=== PATIENT | female | born 1980 | race Caucasian/White ===

== ENCOUNTER 2018-07-22 05:20 | Inpatient (IN) | payer OTHER ==
[~2018-07-22] VITALS: Ht 167.6 cm; Wt 110.0 kg
[2018-07-22] MEDS ORDERED: OXYTOCIN 30U/ 0.9% NaCL 500ML 500 ML IV ONE (05:27)
[2018-07-22] MEDS ORDERED: OXYTOCIN 30U/ 0.9% NaCL 500ML 500 ML IV PRN (05:27)
[2018-07-22] MEDS ORDERED: D5%-LACTATED RINGERS 1,000 ML IV SCH (05:27)
[2018-07-22] MEDS ORDERED: TERBUTALINE 1 MG/ML, 1ML IVPush PRN ×2 (05:30)
[2018-07-22] MEDS ORDERED: ALUMINUM/MAG/SIMETHICONE 30 ML UDC PO PRN (05:30)
[2018-07-22] MEDS ORDERED: ONDANSETRON 2MG/ML, 2ML IVPush PRN (05:30)
[2018-07-22] MEDS ORDERED: FENTANYL PF 100 MCG/2ML IV PRN (05:30)
[2018-07-22] MEDS ORDERED: TERBUTALINE 1 MG/ML, 1ML SQ PRN (05:30)
[2018-07-22] MEDS ORDERED: FENTANYL PF 100 MCG/2ML IVPush PRN (05:30)
[2018-07-22] MEDS ORDERED: CALCIUM CARBONATE 500 MG TAB.CHEW PO PRN ×2 (05:30→19:00)
[2018-07-22] MEDS ORDERED: METOCLOPRAMIDE 5 MG/ML, 2ML IVPush PRN (05:30)
[2018-07-22] MEDS ORDERED: NEWBORN KIT ONE (05:32)
[2018-07-22] MEDS ORDERED: OXYTOCIN 30U/ 0.9% NaCL 500ML 0 ML ONE (05:32)
[2018-07-22] MEDS: LACTATED RINGERS 1,000 ML IV SCH ×4 (05:41→17:04)
[2018-07-22 05:56] VITALS: BP 129/67
[2018-07-22] MEDS ORDERED: PLEASE ENTER ALLERGIES MC SCH (06:00)
[2018-07-22] MEDS ORDERED: MISOPROSTOL 25 MCG TABLET ONE (06:21)
[2018-07-22] MEDS ORDERED: MISOPROSTOL 25 MCG TABLET VG PRN (06:30)
[2018-07-22 06:49] LABS: BASOPHILS # (AUTO) 0.05 x10^3/uL (0-0.1); BASOPHILS % (AUTO) 0 % (0-1); EOSINOPHILS % (AUTO) 1 % (1-7); LYMPHOCYTES # (AUTO) 2.07 x10^3/uL (1-3.4); LYMPHOCYTES % (AUTO) 16 % (22-44); MD NO; MEAN CORPUSCULAR HEMOGLOBIN 27.9 pg (27.0-34.8); MEAN CORPUSCULAR HGB CONC 33.6 g/dL (32.4-35.8); MEAN CORPUSCULAR VOLUME 82.9 fL (80-100); MEAN PLATELET VOLUME 7.3 fL (7.4-10.4); MONOCYTES # (AUTO) 0.68 x10^3/uL (0.2-0.8); MONOCYTES % (AUTO) 5 % (2-9); NEUTROPHILS # (AUTO) 9.77 x10^3/uL (1.8-6.8); NEUTROPHILS % (AUTO) 77 % (42-75); PLATELET COUNT 285 x10^3/uL (130-400); RED BLOOD COUNT 4.42 x10^6/uL (3.82-5.3); RED CELL DISTRIBUTION WIDTH 15.2 % (9.6-15.2)
[2018-07-22] MEDS ORDERED: FENTANYL/BUPIV./NS/PF 250 ML EPIDCONT SCH (07:09)
[2018-07-22] MEDS ORDERED: OXYTOCIN 30U/ 0.9% NaCL 500ML 500 ML ONE (10:48)
[2018-07-22] MEDS ORDERED: BUPIVACAINE 0.25% ONE ×2 (14:21→16:55)
[2018-07-22] MEDS ORDERED: LIDOCAINE/PF 1.5%-EPI 1:200K, 30ML ONE (14:22)
[2018-07-22] MEDS ORDERED: FENTANYL PF 100 MCG/2ML ONE (16:54)
[2018-07-22] MEDS ORDERED: LIDOCAINE 1%, 20ML ONE (18:15)
[2018-07-22] MEDS ORDERED: MISOPROSTOL 200 MCG TABLET ONE (18:16)
[2018-07-22] MEDS: OXYTOCIN 30U/ 0.9% NaCL 500ML 500 ML IV SCH (18:35)
[2018-07-22] MEDS ORDERED: IBUPROFEN 600 MG TABLET ONE (18:42)
[2018-07-22] MEDS: IBUPROFEN 600 MG TABLET PO PRN (18:44)
[2018-07-22] MEDS ORDERED: GLYCERIN ADULT SUPP PR PRN (19:00)
[2018-07-22] MEDS ORDERED: METHYLERGONOVINE 0.2 MG/ML IM PRN (19:00)
[2018-07-22] MEDS ORDERED: DOCUSATE 100 MG CAPSULE PO PRN (19:00)
[2018-07-22] MEDS ORDERED: ONDANSETRON 2MG/ML, 2ML IV PRN (19:00)
[2018-07-22] MEDS ORDERED: CARBOPROST TROMETHAMINE 250 MCG/ML, 1ML IM PRN (19:00)
[2018-07-22] MEDS ORDERED: METOCLOPRAMIDE 5 MG/ML, 2ML IV PRN (19:00)
[2018-07-22] MEDS ORDERED: OXYcodone/APAP 5/325MG TABLET PO PRN ×2 (19:00)
[2018-07-22] MEDS ORDERED: MISOPROSTOL 200 MCG TABLET PR PRN (19:00)
[2018-07-22] MEDS ORDERED: BISACODYL 10 MG SUPP PR PRN (19:00)
[2018-07-22] MEDS ORDERED: ACETAMINOPHEN 325 MG TABLET PO PRN (19:00)
[2018-07-22] MEDS ORDERED: DIPH,PERTUSS(ACELL),TET VAC/PF NC IM-VACC PRN (19:00)
[2018-07-22] MEDS ORDERED: MEASLES,MUMPS&RUBELLA VACC/PF 0.5 ML SQ PRN (19:00)
[2018-07-22] MEDS ORDERED: MAGNESIUM HYDROXIDE 8%, 30ML UDC PO PRN (19:00)
[2018-07-22 21:00] VITALS: BP 113/73
[2018-07-23] MEDS: IBUPROFEN 600 MG TABLET PO PRN ×3 (00:47→14:33)
[2018-07-23 01:00] VITALS: BP 122/74
[2018-07-23 03:00] LABS: BASOPHILS # (AUTO) 0.01 x10^3/uL (0-0.1); BASOPHILS % (AUTO) 0 % (0-1); EOSINOPHILS # (AUTO) 0.01 x10^3/uL (0-0.4); EOSINOPHILS % (AUTO) 0 % (1-7); LYMPHOCYTES # (AUTO) 1.57 x10^3/uL (1-3.4); LYMPHOCYTES % (AUTO) 10 % (22-44); MD NO; MEAN CORPUSCULAR HEMOGLOBIN 27.9 pg (27.0-34.8); MEAN CORPUSCULAR HGB CONC 33.7 g/dL (32.4-35.8); MEAN CORPUSCULAR VOLUME 82.7 fL (80-100); MEAN PLATELET VOLUME 7.1 fL (7.4-10.4); MONOCYTES # (AUTO) 0.73 x10^3/uL (0.2-0.8); MONOCYTES % (AUTO) 5 % (2-9); NEUTROPHILS # (AUTO) 13.45 x10^3/uL (1.8-6.8); NEUTROPHILS % (AUTO) 85 % (42-75); PLATELET COUNT 251 x10^3/uL (130-400); RED BLOOD COUNT 3.98 x10^6/uL (3.82-5.3); RED CELL DISTRIBUTION WIDTH 15.2 % (9.6-15.2)
[2018-07-23] MEDS: OXYTOCIN 30U/ 0.9% NaCL 500ML 500 ML IV SCH (04:35)
[2018-07-23 04:45] VITALS: BP 115/72
[2018-07-23] MEDS ORDERED: LACTATED RINGERS 1,000 ML IV SCH (04:59)
[2018-07-23] MEDS ORDERED: FENTANYL/BUPIV./NS/PF 250 ML EPIDCONT SCH (04:59)
[2018-07-23] MEDS ORDERED: DIPHENHYDRAMINE 50 MG/ML, 1ML IVPush PRN (05:00)
[2018-07-23] MEDS ORDERED: NALOXONE 0.4 MG/ML, 1ML IVPush PRN (05:00)
[2018-07-23] MEDS ORDERED: EPHEDRINE 50 MG/ML, 1ML IVPush PRN (05:00)
[2018-07-23] MEDS ORDERED: ONDANSETRON 2MG/ML, 2ML IVPush PRN (05:00)
[2018-07-23] MEDS ORDERED: LACTATED RINGERS 1,000 ML IVBOLUS PRN (05:00)
[2018-07-23 08:00] VITALS: BP 108/70
[2018-07-23] MEDS ORDERED: PRENATAL VIT/IRON/FA 1 EACH TABLET PO SCH (09:00)
[2018-07-23 13:13] VITALS: BP 117/73
[2018-07-23] MEDS ORDERED: IBUP-1222 PO (18:23)
== END 2018-07-23 20:20 | disposition home or self-care (01) | DRG 807 ==
LOC: LDIP 05:20 → 2NW 20:45
PROVIDERS: ADMIT Obstetrics & Gynecology; ATTEND Obstetrics & Gynecology
PROC: 10E0XZZ Delivery of Products of Conception, External Approach (ICD-10-PCS; principal; 2018-07-22)
PROC: 3E033VJ Introduction of Other Hormone into Peripheral Vein, Percutaneous Approach (ICD-10-PCS; 2018-07-22)
PROC: 0UQKXZZ Repair Hymen, External Approach (ICD-10-PCS; 2018-07-22)
PROC: 3E0R3BZ Introduction of Anesthetic Agent into Spinal Canal, Percutaneous Approach (ICD-10-PCS; 2018-07-22)
PROC: 00HU33Z Insertion of Infusion Device into Spinal Canal, Percutaneous Approach (ICD-10-PCS; 2018-07-22)
DX: O66.0 Obstructed labor due to shoulder dystocia (principal); Z37.0 Single live birth; Z3A.39 39 weeks gestation of pregnancy; O70.0 First degree perineal laceration during delivery
CPT/HCPCS: 36415; 85025; 86850; 86900; G0378; J3490; J2590; J3010; J7120

== ENCOUNTER → 2018-09-23 | Outpatient (CLI) | payer OTHER ==
[~2018-09-23] MED LIST: IBUP-1222 PO; NO MEDS PER PT
[2018-09-23 15:08] LABS: BASOPHILS # (AUTO) 0.05 x10^3/uL (0-0.1); BASOPHILS % (AUTO) 1 % (0-1); EOSINOPHILS % (AUTO) 1 % (1-7); LYMPHOCYTES # (AUTO) 2.02 x10^3/uL (1-3.4); LYMPHOCYTES % (AUTO) 27 % (22-44); MD NO; MEAN CORPUSCULAR HEMOGLOBIN 26.9 pg (27.0-34.8); MEAN CORPUSCULAR HGB CONC 32.2 g/dL (32.4-35.8); MEAN CORPUSCULAR VOLUME 83.7 fL (80-100); MEAN PLATELET VOLUME 6.8 fL (7.4-10.4); MONOCYTES # (AUTO) 0.39 x10^3/uL (0.2-0.8); MONOCYTES % (AUTO) 5 % (2-9); NEUTROPHILS # (AUTO) 5.06 x10^3/uL (1.8-6.8); NEUTROPHILS % (AUTO) 66 % (42-75); PLATELET COUNT 370 x10^3/uL (130-400); RED BLOOD COUNT 5.42 x10^6/uL (3.82-5.3); RED CELL DISTRIBUTION WIDTH 15.5 % (9.6-15.2)
[2018-09-23 15:22] LABS: MICROSCOPIC AUTO
[2018-09-23 15:25] LABS: CULTURE INDICATED? YES
== END | disposition home or self-care (01) ==
LOC: LAB 14:33
PROVIDERS: ATTEND Obstetrics & Gynecology
DX: Z01.818 Encounter for other preprocedural examination (principal); Z30.2 Encounter for sterilization
CPT/HCPCS: 36415; 81001; 84702; 85025; 87086

== ENCOUNTER 2018-09-27 10:08 | Day surgery (SDC) | payer OTHER ==
[~2018-09-27] VITALS: Ht 167.6 cm; Wt 96.5 kg
[~2018-09-27 10:08] MED LIST changes: +EPINEPHRINE 1 MG/ML, 1ML ONE; -NO MEDS PER PT
[2018-09-27] MEDS ORDERED: LACTATED RINGERS 1,000 ML IV SCH (10:41)
[2018-09-27 10:42] VITALS: BP 104/65
[2018-09-27] MEDS ORDERED: NO MEDS PER PT (10:42)
[2018-09-27] MEDS ORDERED: MIDAZOLAM 1 MG/ML, 2ML ONE (11:10)
[2018-09-27] MEDS ORDERED: FENTANYL PF 250 MCG/5ML ONE (11:10)
[2018-09-27] MEDS ORDERED: ROCURONIUM 10MG/ML,5ML ONE (11:11)
[2018-09-27] MEDS ORDERED: LIDOCAINE-MPF 2% ,5ML ONE (11:12)
[2018-09-27] MEDS ORDERED: PROPOFOL 10 MG/ML, 20ML ONE (11:12)
[2018-09-27] MEDS ORDERED: SCOPOLAMINE PATCH, 1.5MG PATCH.TD72 TD ONE (11:27)
[2018-09-27] MEDS ORDERED: KETOROLAC 30 MG/1 ML ONE (12:40)
[2018-09-27] MEDS ORDERED: CEFOTETAN PMX 2GM/50ML 50 ML IVPB ONE (12:40)
[2018-09-27] MEDS ORDERED: DEXAMETHASONE 4 MG/ML, 1ML ONE (12:45)
[2018-09-27] MEDS ORDERED: FENTANYL PF 100 MCG/2ML IV PRN (13:00)
[2018-09-27] MEDS ORDERED: ACETAMINOPHEN 325 MG TABLET PO PRN (13:00)
[2018-09-27] MEDS ORDERED: PROMETHAZINE 25 MG/ML, 1ML IV PRN (13:00)
[2018-09-27] MEDS ORDERED: MEPERIDINE/PF 25MG/0.5ML IVPush PRN (13:00)
[2018-09-27] MEDS ORDERED: OXYcodone 5 MG/5 ML ORAL.SOL UDC PO PRN (13:00)
[2018-09-27] MEDS ORDERED: HYDROmorphone 2 MG/ML, 1ML IVPush PRN (13:00)
[2018-09-27] MEDS ORDERED: hydrALAzine 20 MG/ML, 1ML IV PRN (13:00)
[2018-09-27] MEDS ORDERED: HALOPERIDOL 5 MG/ML IV PRN (13:00)
[2018-09-27] MEDS ORDERED: BUPIVACAINE/PF-EPI 0.5% 1:200K INFIL ONE (13:09)
[2018-09-27] MEDS ORDERED: SUGAMMADEX 200 MG/2 ML IVPush ONE (13:14)
[2018-09-27] MEDS ORDERED: SILVER NITRATE STICK TP ONE (13:15)
[2018-09-27] MEDS ORDERED: HYDROcodone/APAP 7.5-325MG/15ML UDC PO PRN (14:00)
[2018-09-27] MEDS ORDERED: ACETAMINOPHEN 650 MG/20.3 ML UDC ONE (14:20)
[2018-09-27] MEDS ORDERED: FENTANYL PF 100 MCG/2ML ONE (14:21)
== END 2018-09-27 17:30 | disposition home or self-care (01) ==
LOC: OUT 10:08
PROVIDERS: ATTEND Obstetrics & Gynecology
DX: Z30.2 Encounter for sterilization (principal); Z98.890 Other specified postprocedural states
CPT/HCPCS: 36415; 58670; 86850; 86900; 88302; J0171; J1100; J1885; J2250; J2704; J3010; J3490; J7120